=== PATIENT | male | born 1940 | race Caucasian/White ===

== ENCOUNTER 2017-10-07 13:16 | Inpatient (IN) | payer OTHER ==
[2017-10-07] MEDS ORDERED: Ringers Lactate 1,000 ML IV ONE (15:06)
--- NOTE | 2017-10-07 15:34 | RAD REPORT ---
EXAM DESCRIPTION: RAD - Chest Single View - 10/07/2017 2:56 pm CLINICAL HISTORY: Weakness, shortness of breath COMPARISON: August 14, 2017; Two view chest April 2012 TECHNIQUE: AP portable chest image was obtained 1445 hours . FINDINGS: Interstitial pattern is similar to less prominent than on prior imaging. Lung base pleural scarring changes are present and stable. The severity of disease could mask early infiltrative carvajal es. Failure is not suspected. Heart and vasculature are normal. No measurable pleural effusion and no pneumothorax. No gross bony abnormality seen. No acute aortic findings suspected. IMPRESSION: Patient has extensive interstitial fibrotic change and pleural scarring. Pattern is roshan lar to slightly less pronounced than seen in August. The severity of disease could mask early interstitial edema or infiltrate. Failure is not suspected.
[2017-10-07 15:40] LABS: Bicarbonate 27 mEq/L (21-31); Glucose Level 128 mg/dL (65-120); Lipase 21 U/L (22-51); Potassium 3.9 mEq/L (3.6-5.0); Sodium Level 139 mEq/L (135-145)
[2017-10-07 15:42] LABS: Protime INR 1.02
[2017-10-07 15:46] LABS: ALT/SGPT 10 IU/L (10-60); AST/SGOT 22 IU/L (10-42); Albumin 3.3 g/dL (3.2-5.5); Alkaline Phosphatase 101 IU/L (42-121); BUN Blood Urea Nitrogen 22 mg/dL (6-20); Bilirubin Direct 0.1 mg/dL (0-0.2); Bilirubin Total 0.8 mg/dL (0.3-1.2); Creatine Phosphokinase 45 IU/L (22-269); Glomerular Filtration Rate > 90 mL/min (=/>90); Protein, Total 7.2 g/dL (6.0-8.3)
[2017-10-07] MEDS ORDERED: PIPER/TAZO/NS 3.375gm 3.375 GM/100 ML BAG ONE (15:50)
[2017-10-07] MEDS ORDERED: VANCOMYCIN/NS 1 gm 1 GM/250 ML BAG ONE (16:17)
[2017-10-07 16:18] LABS: Absolute Lymphocytes (CBC) 0.8 K/uL (0.7-4.9); Absolute Monocytes 0.7 K/uL (0.1-1.3); Absolute Neutrophil 6.6 K/uL (1.8-8.0); Basophils % 0.5 % (0-1.3); Eosinophils % 0.5 % (0-4.4); Hematocrit 36.5 % (39.6-49.0); Lymphocytes % 9.9 % (15.3-44.8); MCH 39.7 pg (27.0-35.0); MCV 101.6 fL (80-100); MPV 8.5 fL (7.6-11.3); Monocytes % 8.2 % (3.3-12.3); RBC Red Blood Cell Count 3.59 M/uL (4.33-5.43)
--- NOTE | 2017-10-07 17:38 | ER ---
Nurse's Notes [facility] Name: Diego Grimes Age: 77 yrs Sex: Male : 1940 Arrival Date: 10/07/2017 Time: 13:31 Bed 23 Private MD: Diagnosis: Dehydration;Pressure ulcer of right hip, stage 4;Cutaneous abscess of right lower limb;Urinary tract infection, site not specified;Sepsis, unspecified organism Presentation: 10/07 13:31 Presenting complaint: EMS states: Caregiver called 911 because patient has not been aj eating or drinking well for the past 2 days. Patient is awake and alert. Transition of care: patient was not received from another setting of care. Onset of symptoms was October 05, 2017. Care prior to arrival: Medication(s) given: Normal saline infusion, 400 ml IV initiated. 18 GA, in the left antecubital area. 13:31 Method Of Arrival: EMS: [facility] 13:31 Acuity: ANDRA 3 aj Triage Assessment: 13:33 General: Appears in no apparent distress. comfortable, Behavior is calm, cooperative, aj appropriate for age. Pain: Denies pain. Neuro: Level of Consciousness is awake, alert, obeys commands, Oriented to person, place, situation. Respiratory: Airway is patent Respiratory effort is even, unlabored, Respiratory pattern is regular, symmetrical. GI: Parent/caregiver reports the patient having anorexia. Derm: Skin is intact, is healthy with good turgor, Skin is pink, warm \T\ dry. normal. Historical: - Allergies: 13:33 No Known Allergies; aj - Home Meds: 13:33 aspirin 81 mg Oral TbEC 1 tab once daily [Active]; aj - PMHx: 13:33 DVT; aj - PSHx: 13:33 None; aj - Immunization history:: Adult Immunizations unknown. - Social history:: Smoking status: Patient/guardian denies using tobacco. Screenin:15 Abuse screen: Denies threats or abuse. Denies injuries from another. Nutritional kr2 screening: family/caretakers report he does has not been eating or drinking very much. Tuberculosis screening: No symptoms or risk factors identified. Fall Risk IV access (20 points). Ambulatory Aid- None/Bed Rest/Nurse Assist (0 pts). Assessment: 14:15 General: Appears in no apparent distress. comfortable, slender, unkempt, Behavior is kr2 calm, cooperative, appropriate for age. General: Appears patient arrived with dried feces under fingernails and on bottom of foot, family member arrived and assisted in cleaning patient. Pain: Denies pain. Neuro: Level of Consciousness is awake, alert, obeys commands, Oriented to person, place, time, situation. Cardiovascular: Capillary refill < 3 seconds in bilateral fingers Patient's skin is warm and dry. Respiratory: Airway is patent Respiratory effort is even, unlabored, Respiratory pattern is regular, symmetrical. GI: Abdomen is flat, non-distended. : No signs and/or symptoms were reported regarding the genitourinary system. EENT: Oral mucosa is dry. Derm: Skin is thin, with poor turgor Wound noted right hip and right great toe Wound is covered with dressings, small round to right hip, measures 0.5x0.5x0.5cm, saturated with yellow- green drainage. Family member states dressing was changed yesterday. Wound to right great toe is open to air, yellow wound bed, no drainage at this time. Musculoskeletal: Circulation, motion, and sensation intact. 15:00 Reassessment: Patient appears in no apparent distress at this time. Patient and/or kr2 family updated on plan of care and expected duration. Pain level reassessed. Patient is alert, oriented x 3, equal unlabored respirations, skin warm/dry/pink. Patient denies pain at this time. 16:14 Reassessment: Patient appears in no apparent distress at this time. Patient and/or kr2 family updated on plan of care and expected duration. Pain level reassessed. Patient is alert, oriented x 3, equal unlabored respirations, skin warm/dry/pink. Patient denies pain at this time. 17:15 Reassessment: No changes from previously documented assessment. kr2 18:35 Reassessment: Patient appears in no apparent distress at this time. Patient and/or kr2 family updated on plan of care and expected duration. Pain level reassessed. Patient is alert, oriented x 3, equal unlabored respirations, skin warm/dry/pink. Patient denies pain at this time. Vital Signs: 13:33 BP 103 / 86; Pulse 107; Resp 21; Temp 97.4; Pulse Ox 96% on R/A; Weight 58.97 kg; aj Height 6 ft. 1 in. (185.42 cm); Pain 0/10; 16:14 BP 125 / 90; Pulse 106; Resp 18; Pulse Ox 96% on R/A; kr2 18:35 BP 109 / 82; Pulse 98; Resp 18; Pulse Ox 97% on R/A; kr2 13:33 Body Mass Index 17.15 (58.97 kg, 185.42 cm) ED Course: 13:31 Patient arrived in ED. aj 13:33 Triage completed. aj 13:33 Arm band placed on right wrist. Patient placed in an exam room, on a stretcher. aj 13:48 EKG done, by quick service technician. reviewed by Joseph Jimenez MD. tc 13:59 Joseph Jimenez MD is Attending Physician. gs 14:00 Diann Nielson RN is Primary Nurse. kr2 14:00 Patient has correct armband on for positive identification. Bed in low position. Call kr2 light in reach. Side rails up X2. Adult w/ patient. cafeteria monitor on. Pulse ox on. NIBP on. Door closed. Pillow given. Head of bed elevated. 14:50 X-ray completed. Portable x-ray completed in exam room. Patient tolerated procedure mh1 well. 14:51 Chest Single View XRAY In Process Unspecified. EDMS 15:20 Maintain EMS IV. Dressing intact. Site clean \T\ dry. Flushed left antecubital with 2 ml kr2 normal saline. 15:27 Wound culture swab sent to lab. kr2 16:00 Inserted saline lock: 22 gauge in right forearm, using aseptic technique. ,using kr2 aseptic technique. performed by Deborah Lujan RN. 17:36 Andreas Henry MD is Hospitalizing Provider. gs 17:51 Urine Dipstick--Ancillary (enter results) Sent. ag 18:36 No provider procedures requiring assistance completed. Patient admitted, IV remains in kr2 place. Administered Medications: 15:21 Drug: Lactated Ringers Solution 1000 ml Route: IV; Rate: 1000 bolus; Site: left kr2 antecubital; 17:10 Follow up: Response: No adverse reaction; IV Status: Completed infusion kr2 15:43 Drug: Zosyn 3.375 grams Route: IVPB; Infused Over: 60 mins; Site: left antecubital; kr2 17:10 Follow up: Response: No adverse reaction; IV Status: Completed infusion kr2 16:05 Drug: vancoMYCIN 1 grams Route: IVPB; Infused Over: 2 hrs; Site: right forearm; kr2 18:26 Follow up: Response: No adverse reaction; IV Status: Completed infusion kr2 Point of Care Testing: Blood Glucose: 15:28 Blood Glucose: 111 mg/dL; kr2 Ranges: Outcome: 17:37 Decision to Hospitalize by Provider. 18:44 Admitted to Med/surg accompanied by tech, via stretcher, room 424, with chart, Report kr2 called to Gardner 18:44 Condition: good 18:44 Instructed on the need for admit, Demonstrated understanding of instructions, follow-up care. 18:45 Patient left the ED. kr2 Signatures: Dispatcher [employer] EDCorinne Pina, RN RN Demi Mccullough 1 Alexa Wynn, boat engine mechanic EKG Malu Paez Gregory, MD MD gs Reaves, Karey, RN RN kr2
--- NOTE | 2017-10-07 17:38 | EDPHYS ---
Physician Documentation [facility] Name: Diego Grimes Age: 77 yrs Sex: Male : 1940 Arrival Date: 10/07/2017 Time: 13:31 Bed 23 Private MD: ED Physician Joseph Jimenez HPI: 10/07 17:31 This 77 yrs old Male presents to ER via EMS with complaints of Dehydration. gs 17:31 The patient presents to the emergency department with weakness of the entire body, gs generalized weakness. Onset: The symptoms/episode began/occurred 2 day(s) ago. Associated signs and symptoms: Pertinent negatives: nausea. Severity of symptoms: At their worst the symptoms were moderate in the emergency department the symptoms are unchanged. Current symptoms: weak. It is unknown whether or not the patient has had similar symptoms in the past. Historical: - Allergies: 13:33 No Known Allergies; aj - Home Meds: 13:33 aspirin 81 mg Oral TbEC 1 tab once daily [Active]; aj - PMHx: 13:33 DVT; aj - PSHx: 13:33 None; aj - Immunization history:: Adult Immunizations unknown. - Social history:: Smoking status: Patient/guardian denies using tobacco. ROS: 17:31 Constitutional: Positive for fever. gs 17:31 Neuro: Positive for weakness. 17:31 All other systems are negative. Exam: 17:31 Head/Face: Normocephalic, atraumatic. Eyes: Pupils equal round and reactive to light, gs extra-ocular motions intact. Lids and lashes normal. Conjunctiva and sclera are non-icteric and not injected. Cornea within normal limits. Periorbital areas with no swelling, redness, or edema. ENT: Nares patent. No nasal discharge, no septal abnormalities noted. Tympanic membranes are normal and external auditory canals are clear. Oropharynx with no redness, swelling, or masses, exudates, or evidence of obstruction, uvula midline. Mucous membranes moist. Neck: Trachea midline, no thyromegaly or masses palpated, and no cervical lymphadenopathy. Supple, full range of motion without nuchal rigidity, or vertebral point tenderness. No Meningismus. Chest/axilla: Normal chest wall appearance and motion. Nontender with no deformity. No lesions are appreciated. 17:31 Respiratory: Lungs have equal breath sounds bilaterally, clear to auscultation and percussion. No rales, rhonchi or wheezes noted. No increased work of breathing, no retractions or nasal flaring. Abdomen/GI: Soft, non-tender, with normal bowel sounds. No distension or tympany. No guarding or rebound. No evidence of tenderness throughout. Back: No spinal tenderness. No costovertebral tenderness. Full range of motion. 17:31 Constitutional: The patient appears alert, awake, frail, uncomfortable. 17:31 Cardiovascular: Rate: tachycardic, Rhythm: regular, Pulses: no pulse deficits are appreciated. 17:31 ECG was reviewed by the Attending Physician. 17:33 Musculoskeletal/extremity: Circulation is intact in all extremities. large full gs thickness ulcer r hip area, with purulent drainage also on left foot is small ulcer with dry gangrene. 17:33 Neuro: Cranial nerves: CN II- XII are normal as tested, Motor: moves all fours, Sensation: no obvious gross deficits. Vital Signs: 13:33 BP 103 / 86; Pulse 107; Resp 21; Temp 97.4; Pulse Ox 96% on R/A; Weight 58.97 kg; aj Height 6 ft. 1 in. (185.42 cm); Pain 0/10; 16:14 BP 125 / 90; Pulse 106; Resp 18; Pulse Ox 96% on R/A; kr2 18:35 BP 109 / 82; Pulse 98; Resp 18; Pulse Ox 97% on R/A; kr2 13:33 Body Mass Index 17.15 (58.97 kg, 185.42 cm) aj MDM: 14:27 Patient medically screened. 17:33 Data reviewed: vital signs, nurses notes. Data interpreted: transit worker:. Response gs to treatment: the patient's symptoms have mildly improved after treatment, and as a result, I will admit patient. ED course: ddx sepsis, dehydration, septic shock, abscess. 10/07 14:41 Order name: Basic Metabolic Panel; Complete Time: 16:34 10/07 14:41 Order name: Blood Culture Adult (2) 10/07 14:41 Order name: CBC with Diff; Complete Time: 16:34 10/07 14:41 Order name: CPK; Complete Time: 16:34 10/07 14:41 Order name: Lactate; Complete Time: 16:34 10/07 14:41 Order name: LFT's; Complete Time: 16:34 10/07 14:41 Order name: Lipase; Complete Time: 16:34 10/07 14:41 Order name: Procalcitonin; Complete Time: 16:46 10/07 14:41 Order name: Protime (+inr); Complete Time: 16:34 10/07 14:41 Order name: Troponin (emerg Dept Use Only); Complete Time: 16:34 10/07 15:23 Order name: Wound Culture kr2 10/07 15:23 Order name: Wound Culture kr2 10/07 17:47 Order name: Urine Dipstick--Ancillary (enter results) bd 10/07 17:49 Order name: Urine Microscopic Only ag 10/07 14:41 Order name: Chest Single View XRAY; Complete Time: 15:38 10/07 14:41 Order name: Accucheck; Complete Time: 15:27 10/07 14:41 Order name: Cardiac monitoring; Complete Time: 15:04 10/07 14:41 Order name: EKG - Nurse/Tech; Complete Time: 15:03 10/07 14:41 Order name: IV Saline Lock - Large Bore; Complete Time: 15:03 10/07 14:41 Order name: Labs collected and sent; Complete Time: 15:03 10/07 14:41 Order name: O2 Per Protocol; Complete Time: 15:04 10/07 14:41 Order name: O2 Sat Monitoring; Complete Time: 15:04 10/07 14:41 Order name: Urine Dipstick-Ancillary (obtain specimen); Complete Time: 18:45 10/07 17:49 Order name: Urine Culture ag 10/07 17:54 Order name: Urine Dipstick-Ancillary EDMS 10/07 18:21 Order name: Urine Microscopic Only EDMS EC:31 Rate is 108 beats/min. Rhythm is regular. NC interval is normal. QRS interval is gs normal. QT interval is normal. T waves are Normal. No ST changes noted. Clinical impression: Sinus tachycardia. Interpreted by me. Administered Medications: 15:21 Drug: Lactated Ringers Solution 1000 ml Route: IV; Rate: 1000 bolus; Site: left kr2 antecubital; 17:10 Follow up: Response: No adverse reaction; IV Status: Completed infusion kr2 15:43 Drug: Zosyn 3.375 grams Route: IVPB; Infused Over: 60 mins; Site: left antecubital; kr2 17:10 Follow up: Response: No adverse reaction; IV Status: Completed infusion kr2 16:05 Drug: vancoMYCIN 1 grams Route: IVPB; Infused Over: 2 hrs; Site: right forearm; kr2 18:26 Follow up: Response: No adverse reaction; IV Status: Completed infusion kr2 Point of Care Testing: Blood Glucose: 15:28 Blood Glucose: 111 mg/dL; kr2 Ranges: Critical Glucose Levels:Adult <50 mg/dl or >400 mg/dl <40 mg/dl or >180 mg/dl Disposition: 10/07/17 17:37 Hospitalization ordered by Andreas Henry for Inpatient Admission. Preliminary diagnosis are Dehydration, Pressure ulcer of right hip, stage 4, Cutaneous abscess of right lower limb, Urinary tract infection, site not specified, Sepsis, unspecified organism. - Bed requested for Telemetry/MedSurg (Inpatient). - Status is Inpatient Admission. kr2 - Condition is Stable. - Problem is an acute exacerbation. - Symptoms have worsened. UTI on Admission? Yes Critical care time excluding procedures: 17:33 Critical care time: Bedside Care: 10 minutes, Consultation: 10 minutes, Family Intervention: 10 minutes. Total time: 30 minutes Signatures: Dispatcher [employer] Terri Hugo RN RN dw Myers, Amanda, RN RN aj Starr, Gregory, MD MD gs Reaves, Karey, RN RN kr2
[2017-10-07 17:54] LABS: Urine Blood TRACE (NEG); Urine Glucose NEGATIVE (NEG); Urine Protein 1+ (NEG); Urine pH 5.5 (5.0-7.0)
[2017-10-07 18:20] LABS: Urine Bacteria >50 /HPF (NONE SEEN)
[2017-10-07 18:21] LABS: Urine Culture Reflex Order NOT NEEDED
[2017-10-07] MEDS ORDERED: VANCOMYCIN/NS 1 gm 1 GM/250 ML BAG IVPB SCH (18:36)
[2017-10-07] MEDS ORDERED: MORPHINE 4 MG/ML SYR IV PRN (19:49)
[2017-10-07] MEDS ORDERED: ACETAMINOPHEN 500 MG TAB PO PRN (19:49)
[2017-10-07] MEDS ORDERED: ONDANSETRON 4 MG/2 ML VIAL IV PRN (19:49)
[2017-10-07] MEDS: NA CHLORIDE 0.9% 1,000 ML IV SCH (20:28)
[2017-10-08] MEDS: NA CHLORIDE 0.9% 1,000 ML IV SCH ×2 (04:36→14:11)
[2017-10-08 04:52] LABS: Absolute Lymphocytes (CBC) 0.7 K/uL (0.7-4.9); Absolute Monocytes 0.6 K/uL (0.1-1.3); Absolute Neutrophil 4.5 K/uL (1.8-8.0); Basophils % 0.4 % (0-1.3); Eosinophils % 2.5 % (0-4.4); Hematocrit 33.9 % (39.6-49.0); Lymphocytes % 12.3 % (15.3-44.8); MCH 35.7 pg (27.0-35.0); MCV 100.3 fL (80-100); MPV 7.5 fL (7.6-11.3); Monocytes % 10.3 % (3.3-12.3); RBC Red Blood Cell Count 3.38 M/uL (4.33-5.43)
[2017-10-08 04:59] LABS: Protime INR 1.03
[2017-10-08 05:27] LABS: ALT/SGPT 9 IU/L (10-60); AST/SGOT 16 IU/L (10-42); Albumin 2.4 g/dL (3.2-5.5); Alkaline Phosphatase 83 IU/L (42-121); BUN Blood Urea Nitrogen 16 mg/dL (6-20); Bicarbonate 26 mEq/L (21-31); Bilirubin Total 0.9 mg/dL (0.3-1.2); Glomerular Filtration Rate > 90 mL/min (=/>90); Glucose Level 83 mg/dL (65-120); Potassium 3.6 mEq/L (3.6-5.0); Protein, Total 5.1 g/dL (6.0-8.3); Sodium Level 140 mEq/L (135-145)
--- NOTE | 2017-10-08 08:42 | P.HP ---
Certification for Inpatient Patient admitted to: Inpatient With expected LOS: >2 Midnights Patient will require the following post-hospital care: None Practitioner: I am a practitioner with admitting privileges, knowledge of patient current condition, hospital course, and medical plan of care. Services: Services provided to patient in accordance with Admission requirements found in Title 42 Section 412.3 of the Code of Federal Regulations Patient History Date of Service: 10/07/17 Reason for admission: Dehydration; malnourished History of Present Illness: Patient is a 77-year-old gentleman who is a poor historian. He lives at home with caretakers. For the last few days he has not been eating or drinking well. He is very cachectic and getting weaker. His big 6 dealer call 911 because of his poor nutritional status. He also has a decubitus which is healing on the right hip. Patient was started on IV hydration. His workup in the emergency room revealed acute kidney injury. Patient also had Macrocytic anemia indicative of nutrition deficiency as well. Patient was admitted to the hospital for further evaluation. Allergies No Known Allergies Allergy (Unverified 08/14/17 16:54) Home Medications: Aspirin [Aspirin EC 81 MG] 81 mg PO DAILY 10/08/17 - Past Medical/Surgical History Has patient received pneumonia vaccine in the past: No Diabetic: No -: DVT Past Surgical History: Patient denies surgical history - Family History Mother Notes: patient states he doesnt know Father Notes: patient states he doesnt know - Social History Smoking Status: Never smoker Review of Systems 10-point ROS is otherwise unremarkable Physical Examination - Vital Signs Temperature: 97.1 F Blood Pressure: 102/58 Pulse: 73 Respirations: 18 Pulse Ox (%): 96 - Physical Exam General: Alert, In no apparent distress, Oriented x3, Cachectic, Disheveled HEENT: Atraumatic, PERRLA, Mucous membr. moist/pink, EOMI, Sclerae nonicteric Neck: Supple, 2+ carotid pulse no bruit, No LAD, Without JVD or thyroid abnormality Respiratory: Clear to auscultation bilaterally, Normal air movement Cardiovascular: Regular rate/rhythm, Normal S1 S2, Systolic murmur Gastrointestinal: Normal bowel sounds, Soft and benign, Non-distended, No tenderness Musculoskeletal: No tenderness Integumentary: Skin lesion (Underneath the right hip. Stage I) Neurological: Normal speech, Normal tone, Sensation intact, Cranial nerves 3-12 intact, Normal affect, Abnormal gait, Abnormal strength Lymphatics: No axilla or inguinal lymphadenopathy - Studies Laboratory Data (last 24 hrs) 10/07/17 15:15: PT 12.0, INR 1.02 10/07/17 15:15: WBC 8.1, Hgb 14.2, Hct 36.5 L, Plt Count 388 10/07/17 15:15: Sodium 139, Potassium 3.9, BUN 22 H, Creatinine 0.71, Glucose 128 H, Total Bilirubin 0.8, AST 22, ALT 10, Alkaline Phosphatase 101, Lipase 21 L Assessment & Plan - Problems (Diagnosis) (1) Malnutrition Current Visit: Yes Status: Acute (2) Cachexia Current Visit: Yes Status: Acute (3) Prerenal azotemia Current Visit: Yes Status: Acute (4) Macrocytic anemia Current Visit: Yes Status: Acute (5) Puncture wound of hip Current Visit: Yes Status: Acute - Plan Plan: 1. IV hydration 2. Monitor renal function 3. Case management consultation 4. Continue local wound care 5. Check B12 and folic acid level 6. Physical therapy evaluation 7. GI and DVT prophylaxis Discharge Plan: Home Plan to discharge in: Greater than 2 days - Advance Directives Does patient have a Living Will: No Does patient have a Durable POA for Healthcare: Yes - Code Status/Comfort Care Code Status Assessed: Yes Code Status: Full Code Critical Care: No Time Spent Managing PTS Care (In Minutes): 50
[2017-10-08] MEDS: VANCOMYCIN/NS 1 gm 1 GM/250 ML BAG IV SCH (09:34)
[2017-10-08] MEDS: PIPER/TAZO/NS 3.375gm 3.375 GM/100 ML BAG IV SCH ×2 (11:18→19:00)
[2017-10-08 13:24] LABS: Thyroid Stimulating Hormone 1.75 uIU/mL (0.34-5.60)
[2017-10-08] MEDS: THIAMINE HCL 100 MG TABLET PO SCH ×2 (14:10→21:22)
--- NOTE | 2017-10-08 14:19 | RAD REPORT ---
EXAM DESCRIPTION: RAD - Foot Right 2 View - 10/08/2017 1:49 pm CLINICAL HISTORY: Diabetic foot. COMPARISON: None. FINDINGS: Diffuse osteopenia noted. Lucent moderate-sized chondroid bone lesion is present emanating from dorsal lateral margin of the proximal phalanx of the great toe. This may represent an enchondro ma, low grade chondrosarcoma or less likely chondromyxoid fibroma. Small calcaneal spur noted. Vascul ar calcifications noted.
--- NOTE | 2017-10-08 16:13 | RAD REPORT ---
EXAM DESCRIPTION: CT - Head Brain W/Wo Con - 10/08/2017 4:00 pm CLINICAL HISTORY: Headache COMPARISON: 07/27/2010 TECHNIQUE: All CT scans are performed using dose optimization technique as appropriate and may inclu de automated exposure control or mA/KV adjustment according to patient size. FINDINGS: No intracranial hemorrhage, hydrocephalus or extra-axial fluid collection.Moderate general ized brain atrophy is present with moderate periventricular and deep white matter chronic microvascul ar ischemic changes.No areas of brain edema or evidence of midline shift. The paranasal sinuses and mastoids are clear. The calvarium is intact. Post-contrast portion of the examination demonstrates no abnormal areas of enhancement. IMPRESSION: No acute intracranial abnormality. No abnormal postcontrast enhancement identified.
--- NOTE | 2017-10-08 16:19 | RAD REPORT ---
EXAM DESCRIPTION: CT - Chest Abdomen Pelvis W Cont - 10/08/2017 4:00 pm CLINICAL HISTORY: Chest and abdomen pain. Weight loss COMPARISON: None. TECHNIQUE All CT scans are performed using dose optimization technique as appropriate and may includ e automated exposure control or mA/KV adjustment according to patient size. FINDINGS: Linear opacities are present in both lung bases, most compatible with a areas of atelectas is. The lungs are mildly emphysematous.Trace bilateral pleural fluid.Calcified left-sided pleural maite ques seen.No intrathoracic adenopathy. Small hiatal hernia is present. The liver demonstrates no focal lesion or biliary dilatation. Mild gallbladder distention. The spleen , pancreas, adrenal glands and kidneys are within normal limits. Aortic atherosclerosis is seen. Ecta tic changes of the right common iliac artery is present. No bowel obstruction, free air, free fluid or abscess. No pathologic lymphadenopathy in the abdomen o r pelvis. Moderate fecal retention in the rectum. Hardware is present in the right proximal femur. IMPRESSION: COPD with evidence of previous asbestos exposure. Significant aortic atherosclerosis. Moderate fecal retention in the rectum.
--- NOTE | 2017-10-08 18:09 | CON ---
History Of Present Illness: The patient is a 77-year-old male coming in with dehydration because was not able to eat or drink. I was consulted for right hip ulcer, status post nonhealing surgical ulce r, and right foot ulceration. The patient is not a good historian. Most of the history was obtained through medical record. Past Medical History: Right hip surgery status post fall, right big toe injury secondary to horse st epping on his foot 50+ years ago. Medications: Zosyn and vancomycin. See MARs for other medication. Allergies: NO KNOWN DRUG ALLERGIES. Review of Systems: A 10-point review was performed. Physical Examination: General: This is a 77-year-old male, lying in bed, not in any acute cardiopulmonary distress. Vital Signs: Temperature 97, pulse 87, respiration 18, blood pressure 128/71. HEENT: Unremarkable. Neck: Supple. Lungs: Basal crackles. Heart: S1, S2 regular. Abdomen: Soft, nontender. Bowel sounds positive. Extremities: Right hip wound noted 0.4 x 0.4, depth was 1 cm. Right big toe erythematous changes no paige on the big toe with the ulceration 1.5 x 1 cm and depth is 0.5. Laboratory Data: Shows WBC 6000, hemoglobin 12.1, platelets are 316. Chemistry shows sodium 140, po tassium 3.6, chloride 106, bicarb 26, 0.59, glucose is 83, albumin is 2.4, procalcitonin is 0.6. Chest x-ray shows extensive interstitial fibrotic changes and pleural scarring. Assessment And Plan: Right hip nonhealing complicated surgical wound, recommend to get an x-ray of t he hip. Right foot nonhealing ulcer, recommend to get an x-ray of the foot also. Apply Santyl to th e right foot ulceration daily, iodoform gauze packing to the right hip wound. We will follow the pat ient closely. Continue vancomycin and Zosyn. Can be switched to oral antibiotic prior to discharge for 2 weeks. We will follow the patient closely. NF/MODL Voice ID: [id number] Report ID: [id number]
--- NOTE | 2017-10-08 18:17 | P.PN ---
Subjective Date of Service: 10/08/17 Chief Complaint: Dehydration; malnourished The patient feels better today after rehydration Physical Examination - Vital Signs Temperature: 97.4 F Blood Pressure: 110/76 Pulse: 99 Respirations: 18 Pulse Ox (%): 94 - Physical Exam General: Alert, In no apparent distress HEENT: Atraumatic, PERRLA, EOMI Neck: Supple, JVD not distended Respiratory: Clear to auscultation bilaterally, Normal air movement Cardiovascular: Regular rate/rhythm, Normal S1 S2 Gastrointestinal: Normal bowel sounds, No tenderness Musculoskeletal: No tenderness Integumentary: No rashes Neurological: Normal speech, Normal tone, Normal affect Lymphatics: No axilla or inguinal lymphadenopathy - Studies Microbiology Data (last 24 hrs): 10/07/17 15:00 Wound - Right Hip Gram Stain - Final 10/07/17 15:00 Wound - Right Toe Gram Stain - Final Medications List Reviewed: Yes Assessment And Plan - Current Problems (Diagnosis) (1) Failure to thrive Current Visit: Yes Status: Acute Qualifiers: Failure to thrive age range: in adult Qualified Code(s): R62.7 - Adult failure to thrive (2) Dehydration Current Visit: Yes Status: Chronic (3) Cachexia Current Visit: Yes Status: Chronic (4) Macrocytic anemia Current Visit: Yes Status: Chronic (5) Malnutrition Current Visit: Yes Status: Chronic Qualifiers: Malnutrition type: protein-calorie malnutrition Protein-calorie malnutrition severity: moderate Qualified Code(s): E44.0 - Moderate protein- calorie malnutrition (6) Puncture wound of hip Current Visit: Yes Status: Chronic Qualifiers: Encounter type: initial encounter Laterality: right Qualified Code(s): S71.031A - Puncture wound without foreign body, right hip, initial encounter - Plan --continue intravenous fluid replacement --chest abdomen pelvis rule out malignant --CT of the head rule out stroke --B12 and tsh --console aids social worker in terms of placement assistance
[2017-10-09] MEDS: NA CHLORIDE 0.9% 1,000 ML IV SCH ×3 (00:36→20:27)
[2017-10-09] MEDS: PIPER/TAZO/NS 3.375gm 3.375 GM/100 ML BAG IV SCH ×3 (01:08→16:48)
[2017-10-09] MEDS: VANCOMYCIN/NS 1 gm 1 GM/250 ML BAG IV SCH ×2 (03:51→22:00)
[2017-10-09] MEDS: THIAMINE HCL 100 MG TABLET PO SCH ×3 (08:52→20:27)
[2017-10-09] MEDS: COLLAGENASE 30 GM OINTMENT TOP SCH ×2 (08:53→08:58)
[2017-10-09] MEDS: ENSURE ENLIVE 237 ML CAN PO SCH ×2 (13:45→20:27)
--- NOTE | 2017-10-09 16:02 | RAD REPORT ---
EXAM DESCRIPTION: RAD - Femur Right - 10/09/2017 3:43 pm CLINICAL HISTORY: Pain, soft tissue wound. COMPARISON: None. FINDINGS: Intramedullary mine is noted in the proximal right femur. There is slight lucency seen surr ounding the superior aspect of the intramedullary mine which could indicate mild movement of the hardw are/loosening. Heavy atherosclerosis is noted. No radiographic evidence of osteomyelitis.
[2017-10-09] MEDS: ENOXAPARIN 40 MG/0.4 ML SQ SCH (16:48)
--- NOTE | 2017-10-09 18:07 | PN ---
Subjective: Currently is lying in bed. He looks comfortable. No chest pain. No abdominal pain. N o fever no chills. Good appetite. Review of Systems: Otherwise negative. Objective: Vital Signs: Currently vital signs, blood pressure is 105/75, respiratory rate 16, pulse 89, temperature 98.2, and saturating 93 on room air. General: He is fully alert, oriented x3. Does not look in any distress. HEENT: Atraumatic, normocephalic. PERRLA. Oral mucosa is moist. Neck: Supple. No JVD. No carotid bruits. Chest: Clear to auscultation. Good air entry. Heart: Regular rate and rhythm. S1, S2 normal. No gallop or murmur. Abdomen: Soft, nontender. No masses. No hepatosplenomegaly. Positive bowel sounds. Extremities: No clubbing, no cyanosis or edema. Right foot with a large ulceration on the big toe 1 x 1.5 cm and depth of 0.5 cm. Right hip wound 0.4 x 0.4 with a depth of 1 cm. There is mild erythe ma on the right big toe. Laboratory Data: Done today showed CBC within normal except for hemoglobin 12.1, normal platelet cou nt. Chemistry within normal except for creatinine 0.59, BUN of 16, and ALT of 9. Foot x-ray showed diffuse osteopenia, lucent moderate sized chondroid bone lesion present which may r epresent enchondroma, low grade chondrosarcoma, or less likely a chondromyxoid fibroma. The hip x-ra ys that were ordered by Dr. Lopez, apparently it was not done. Assessment And Plan: 1.Right hip nonhealing complicated surgical wound and right foot nonhealing ulcer. X-ray of the nickie t noted. Given the questionable nature of the lesion, I will proceed with the orthopedic consult to see if the patient needs amputation on that toe. Hip x-rays not done, so I will proceed with that. Continue the patient empirically with vancomycin. Wound culture from the hip showed Staphylococcus a ureus, which is sensitive to vancomycin and Bactrim, so would have oral option if we need to switch d own the road. 2.Severe cachexia and weight loss. CAT scan of the chest, abdomen, and pelvis done by Dr. Henry was negative for malignancy. 3.Puncture wound of the hip. Culture again positive for Staphylococcus aureus. The patient on Zosy n and vancomycin. I will probably discontinue Zosyn when the culture is final. 4.Malnutrition. Continue Ensure. There is no evidence of malignancy on CAT scan. 5.CAT scan of the head was negative for stroke. 6.Pending patient placement, social Work consult. 7.Deep vein thrombosis prophylaxis. We will start Lovenox at 40 mg once a day. MT/MODL Voice ID: [id number] Report ID: [id number]
[2017-10-10] MEDS: PIPER/TAZO/NS 3.375gm 3.375 GM/100 ML BAG IV SCH ×2 (01:12→09:15)
[2017-10-10] MEDS: NA CHLORIDE 0.9% 1,000 ML IV SCH ×2 (07:09→15:16)
[2017-10-10] MEDS ORDERED: PNEUMOCOCCAL VACCINE 0.5 ML IMVAC ONE (08:00)
[2017-10-10] MEDS: THIAMINE HCL 100 MG TABLET PO SCH ×3 (10:17→20:19)
[2017-10-10] MEDS: COLLAGENASE 30 GM OINTMENT TOP SCH (10:17)
--- NOTE | 2017-10-10 13:02 | EKG ---
Test Date: 2017-10-07 Test Time: 13:42:29 Farm Rancher: MANOLO MEASUREMENT RESULTS: Intervals: Rate: 108 MI: 148 QRSD: 72 QT: 340 QTc: 455 Bonham: P: 73 MI: 148 QRS: 34 T: 59 INTERPRETIVE STATEMENTS: Sinus tachycardia Otherwise normal ECG Compared to ECG 07/27/2010 03:08:57 Sinus rhythm no longer present First degree AV block no longer present Electronically Signed On 10-10-17 13:01:28 CDT by Deuce Arvizu
[2017-10-10] MEDS: ENSURE ENLIVE 237 ML CAN PO SCH ×2 (13:33→20:19)
[2017-10-10] MEDS: VANCOMYCIN/NS 1 gm 1 GM/250 ML BAG IV SCH (16:08)
[2017-10-10] MEDS: ENOXAPARIN 40 MG/0.4 ML SQ SCH (16:21)
[2017-10-10] MEDS: Meropenem 1,000 MG in NA CHLORIDE 0.9% 100 ML IV SCH (17:25)
--- NOTE | 2017-10-10 17:50 | PN ---
Subjective: The patient lying in bed. He looks comfortable. He has no chest pain. No abdominal pa in. Has mild nausea but resolved. No events overnight. Objective: Vital Signs: Blood pressure 121/64, respiratory rate 18, heart rate 79, temperature 98. General: He is fully alert, oriented x3. Does not look in any distress. HEENT: Atraumatic, normocephalic. PERRLA. Mucosa is moist. Neck: Supple. No JVD. No carotid bruits. Chest: Clear to auscultation. Good air entry. Heart: Regular rate, normal S1, S2 normal. No gallop or murmur. Abdomen: Soft, nontender. No masses. No hepatosplenomegaly. Positive bowel sounds. Extremities: Without any clubbing or cyanosis. There is a right foot with large laceration on the b ig toe 1 x 1.5 cm and depth of 0.5 cm. Right hip open wound is small 0.4 x 0.4 cm with a depth of 1 cm. Mild erythema on the right big toe. Laboratory Data: Today showed nothing as labs was not done. X-ray order of the femur yesterday show ed an intramedullary mine is noted in the proximal right femur, slight lucency seen surrounding the [place] perior aspect of the intramedullary mine which could indicate mild movement of the hardware loosening. Heavy is noted. There was no osteomyelitis. Assessment And Plan: 1.Right hip nonhealing complicated surgical wound and right foot nonhealing ulcer. At this point, O rthopedic consult is still pending to see if the patient need any surgical intervention. In the mean time, wound culture from the femur growing Staph was sensitive to vancomycin. He will continue that while the wound culture from the toe growing Pseudomonas so will switch his antibiotic to meropenem t o cover Pseudomonas and continue vancomycin following that. 2.Severe cachexia with weight loss. CAT scan of the chest abdomen and pelvis done by Dr. Henry was negative for malignancy. 3.Malnutrition. Continue Ensure. Nutrition consult. 4.Placement needed, Social consult requested Mondays, they will need to work on that. 5.Deep venous thrombosis prophylaxis with Lovenox. TERA/COURTNEYL Voice ID: [id number] Report ID: [id number]
[2017-10-11] MEDS: Meropenem 1,000 MG in NA CHLORIDE 0.9% 100 ML IV SCH ×2 (01:59→09:52)
[2017-10-11] MEDS: NA CHLORIDE 0.9% 1,000 ML IV SCH ×2 (01:59→10:00)
[2017-10-11] MEDS ORDERED: VANCOMYCIN/NS 1 gm 1 GM/250 ML BAG IV SCH (04:00)
[2017-10-11 05:40] LABS: Absolute Lymphocytes (CBC) 0.9 K/uL (0.7-4.9); Absolute Monocytes 0.6 K/uL (0.1-1.3); Absolute Neutrophil 3.9 K/uL (1.8-8.0); Basophils % 0.5 % (0-1.3); Eosinophils % 4.7 % (0-4.4); Hematocrit 32.1 % (39.6-49.0); Lymphocytes % 15.6 % (15.3-44.8); MCH 34.9 pg (27.0-35.0); MCV 100.1 fL (80-100); MPV 6.9 fL (7.6-11.3); Monocytes % 10.2 % (3.3-12.3)
[2017-10-11 05:55] LABS: ALT/SGPT 9 IU/L (10-60); AST/SGOT 19 IU/L (10-42); Albumin 2.4 g/dL (3.2-5.5); Alkaline Phosphatase 71 IU/L (42-121); BUN Blood Urea Nitrogen 6 mg/dL (6-20); Bicarbonate 27 mEq/L (21-31); Bilirubin Total 0.7 mg/dL (0.3-1.2); Glomerular Filtration Rate > 90 mL/min (=/>90); Glucose Level 90 mg/dL (65-120); Potassium 3.2 mEq/L (3.6-5.0); Protein, Total 5.1 g/dL (6.0-8.3); Sodium Level 139 mEq/L (135-145)
[2017-10-11] MEDS: THIAMINE HCL 100 MG TABLET PO SCH (09:52)
[2017-10-11] MEDS: ENSURE ENLIVE 237 ML CAN PO SCH ×2 (09:52→20:35)
[2017-10-11] MEDS: COLLAGENASE 30 GM OINTMENT TOP SCH (09:58)
[2017-10-11] MEDS ORDERED: HYDROCODONE/APAP 7.5/325 MG TAB PO PRN (09:59)
[2017-10-11] MEDS ORDERED: TRAMADOL HCL 50 MG TAB PO PRN (09:59)
--- NOTE | 2017-10-11 10:08 | P.PN ---
Subjective Date of Service: 10/11/17 Primary Care Provider: None Chief Complaint: Dehydration; malnourished Subjective: Doing well Physical Examination - Vital Signs Temperature: 97.7 F Blood Pressure: 132/70 Pulse: 71 Respirations: 18 Pulse Ox (%): 93 - Physical Exam General: Alert, In no apparent distress, Cooperative HEENT: Atraumatic Neck: Supple Respiratory: Clear to auscultation bilaterally, Normal air movement Cardiovascular: Normal pulses, Regular rate/rhythm Gastrointestinal: Normal bowel sounds, Soft and benign, Non-distended Musculoskeletal: No tenderness, No warmth Integumentary: Other (There is a small ulcer to the right great toe. There is a bony lesion to the right great toe. Small ulcer to the right hip lateral region. ) - Studies Microbiology Data (last 24 hrs): 10/07/17 15:00 Wound - Right Toe Gram Stain - Final 10/07/17 15:00 Wound - Right Toe Culture & Sensitivity - Final Pseudomonas Aeruginosa Staph Aureus Medications List Reviewed: Yes Assessment & Plan - Problems (Diagnosis) (1) Foot ulcer Current Visit: Yes Status: Acute Plan: Foot ulcer noted to the right great toe. Wound culture positive for Staph aureus and Pseudomonas. Will transition to oral medication. Patient will need oral antibiotics for 2 weeks. Will discuss further with infectious disease. Patient will need to continue with wound care. Will need to discuss with orthopedics concerning the tumor to the toe. Will continue with physical therapy. Patient awaiting to be sent to skilled facility. 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 The patient suffered an injury many years ago. A tumor appears to have formed. Will discuss with orthopedics for plan of care. (3) Malnutrition Onset Date: 10/11/17 Current Visit: Yes Status: Chronic Plan: Will continue with dietary recommendation. Qualifiers: Malnutrition type: protein-calorie malnutrition Protein-calorie malnutrition severity: moderate Qualified Code(s): E44.0 - Moderate protein- calorie malnutrition (4) Puncture wound of hip Onset Date: 10/11/17 Current Visit: Yes Status: Chronic Plan: Small ulcer to the right hip. No osteomyelitis noted to the x-ray. Will monitor this closely. Will discuss further with orthopedics. Wound culture positive for Staph aureus. Will transition to oral antibiotic therapy for 2 weeks. Qualifiers: Encounter type: initial encounter Laterality: right Qualified Code(s): S71.031A - Puncture wound without foreign body, right hip, initial encounter (5) Hypokalemia Current Visit: Yes Status: Acute Plan: Will continue to monitor and replace appropriately. Replacement protocol in place. (6) Anemia Current Visit: Yes Status: Acute Plan: Will continue to monitor closely. Qualifiers: Anemia type: other cause Other causes of anemia: chronic disease, other Qualified Code(s): D63.8 - Anemia in other chronic diseases classified elsewhere Discharge Plan: Other (Skilled facility placement) Plan to discharge in: 24 Hours Time Spent Managing Pts Care (In Minutes): 55
[2017-10-11] MEDS: ENOXAPARIN 40 MG/0.4 ML SQ SCH (17:51)
--- NOTE | 2017-10-11 18:48 | PN ---
Subjective: The patient lying in bed. Denies any headache, nausea, vomiting, chest pain, abdominal pain, constipation, or diarrhea. Objective: Vital Signs: Temperature 98, pulse 71, respirations 18, and blood pressure 126/69. Lungs: Basal crackles. Heart: S1, S2. Regular. Abdomen: Soft, nontender. Bowel sounds positive. Extremities: No edema. Right hip wound decreased drainage and right foot ulcer on the big toe area also decreased, ulceration continue. Laboratory Data: WBC 5.6, hemoglobin 11.2, and platelets are 311. Chemistry shows sodium 139, potas sium 3.2, chloride 107, bicarb 27, BUN 6, creatinine 0.5, and glucose is 90. Micro data shows right great toe with Pseudomonas aeruginosa and staph aureus positive. Right hip wound has staph aureus al so, not MRSA. Can be switched to oral Augmentin and Levaquin. We will follow the patient closely. The [facility]. Otherwise, follow up with the primary care. LOLIS/YING Voice ID: [id number] Report ID: [id number]
[2017-10-11] MEDS: MUPIROCIN 2% OINT 22GM TUBE TOP SCH (20:33)
[2017-10-11] MEDS: AMOX/K CLAV 500 MG TAB PO SCH (20:34)
--- NOTE | 2017-10-12 05:40 | CON ---
Date of Consultation: 10/11/2017 This is my first time seeing this patient to my knowledge. He is a 77-year-old male, who was apparen tly admitted for dehydration and generalized disability. He has x-rays, which demonstrate a healed i ntertrochanteric fracture on the right with 1 cephalomedullary screw as well as a mine. The other cep halomedullary screw is not present. Also has a distal screw. Also has x-rays of the foot, which dem onstrate a mass along the medial aspect of his proximal phalanx of his great toe. This mass has unus ual characteristics and could be consistent with a neoplastic process. On history, the patient says that he did have a fracture of his hip at approximately 5 years ago and that he never had any additio nal surgery to his hip and that he did have a screw which did back out which he self removed that he does not have any surgery for. He says since that time he has had a draining area in this region of his hip and he has been treating it himself for approximately 5 years with salves and creams. Says s ometimes it is worse than others, but is not painful and does not cause him any pain with ambulation. With regard to his toe, his toe does have a large mass along the medial aspect. This mass appears to abut the second toe. There is some loss of skin or ulceration on the most superficial medial aspe ct of this. He does have some mild pain with palpation of this area. On further questioning, he say s that he had this mass since he was 17 years old after being stepped on by a horse. He says that th is is not changed in any way in character or presentation throughout 50 or so years. He says now it is beginning to bother him, but he says that this is the same size and he has had no changes. Assessment: This is a 77-year-old male now with a healed intertrochanteric femur fracture on the rig ht with retained hardware. He does have a draining sinus, which is most likely reflective of osteomy elitis. Plan for this would be either conservative, which would be treatment with oral antibiotics. Watch for any signs of worsening with regard to constitutional symptoms, but otherwise treat this wi th suppression or irrigation and debridement of this area with removal of hardware, possible reaming of the femur as well as any screw track. With regard to his toe, he does have characteristics which appear to be consistent with neoplasm to me whether or not this was a transformative lesion or whethe r this is a primary neoplasm is uncertain. The recommendation for him is to proceed to the Cancer Ce [facility]ter for probable biopsy and any other procedures, which they may deem necessary. I think that biops y at this institution is not recommended as this is undoubtedly if it is neoplastic, would be a rare manifestation and treatment methods may include need for higher level of care and that biopsying this lesion would either be nondiagnostic or would then possibly show that he needs referral to a [facility] care center either which would probably be best handled initially at the tertiary care center. The re is no sign of active infection. After these options were discussed in detail with the patient, th e patient says he would not like to have anything done surgically and that he is planning on moving [facility] to [place] and that when he goes to [place], he will have everything addressed there. I disc ussed with him the chronic osteomyelitis and differing treatments and what this could mean for him. He says he understands that, but again was he would like to go to [place] for his medical care [facility] rding this. With regard to his toe, he has the exact same response to inquiry, stating that he would like to have this taken care of in [place] as well. I asked him when he is going to go to [facility], he says that his [facility] is actively [facility] [place] and he plans on leaving to go to [place] as soon as possible. I asked when he thought that would be, he said he was unsure. Plan: At this time, probably treat the toe with local wound care. Dr. Boss and Dr. Mora in [facility] rd to addressing the infectious changes of osteomyelitis and probably treat this conservatively. I t hink it also would be vail to at least have a second pair of eyes with regard to his toe and would ad vise consultation with our oncologist on staff and at least they could speak with him about his possi ble options and be able to confirm his wishes or perhaps move forward with different recommendations. SADIA Voice ID: [id number] Report ID: [id number]
[2017-10-12] MEDS: MUPIROCIN 2% OINT 22GM TUBE TOP SCH (08:58)
[2017-10-12] MEDS: AMOX/K CLAV 500 MG TAB PO SCH (08:58)
[2017-10-12] MEDS: COLLAGENASE 30 GM OINTMENT TOP SCH (08:59)
[2017-10-12] MEDS: ENSURE ENLIVE 237 ML CAN PO SCH (09:00)
[2017-10-12] MEDS ORDERED: THIAMINE HCL 100 MG TABLET PO SCH (09:00)
[2017-10-12] MEDS ORDERED: levoFLOXacin 500 MG TAB PO SCH (09:00)
[2017-10-12] MEDS: ENOXAPARIN 40 MG/0.4 ML SQ SCH (16:07)
--- NOTE | 2017-10-12 16:58 | P.DS ---
Admission Date: 10/07/17 Discharge Date: 10/12/17 Primary Care Provider: None Disposition: TRANSFER TO ASSISTED Discharge Condition: GOOD Reason for Admission: Dehydration; malnourished Consultations: Orthopedics-Dr. Lopez Infectious disease-Dr. Mora - Problems (1) Foot ulcer Current Visit: Yes Status: Acute Qualifiers: Laterality: right Non-pressure ulcer stage: unspecified non-pressure ulcer stage Qualified Code(s): L97.519 - Non-pressure chronic ulcer of other part of right foot with unspecified severity (2) Bone tumor Current Visit: Yes Status: Chronic (3) Malnutrition Onset Date: 10/11/17 Current Visit: Yes Status: Chronic Qualifiers: Malnutrition type: protein-calorie malnutrition Protein-calorie malnutrition severity: moderate Qualified Code(s): E44.0 - Moderate protein- calorie malnutrition (4) Puncture wound of hip Onset Date: 10/11/17 Current Visit: Yes Status: Chronic Qualifiers: Encounter type: initial encounter Laterality: right Qualified Code(s): S71.031A - Puncture wound without foreign body, right hip, initial encounter (5) Hypokalemia Current Visit: Yes Status: Acute (6) Anemia Current Visit: Yes Status: Acute Qualifiers: Anemia type: other cause Other causes of anemia: chronic disease, other Qualified Code(s): D63.8 - Anemia in other chronic diseases classified elsewhere Brief History of Present Illness: 77-year-old male presented emergency room with malnutrition and ulcer to the right femur area. The patient was evaluated and admitted for further evaluation. Hospital Course: During the course of his stay the wounds to the right thigh and right great toe was evaluated by orthopedics. Orthopedics felt that the right thigh ulcer was a sinus tract related to hardware to the right hip. Orthopedics felt that the patient may have underlying osteomyelitis. Orthopedics counseled the patient at length about the need for the removal of hardware. The patient declined intervention. The patient would rather have this further address in [place] where he is from. Orthopedics was also concerned about the lesion to the right great toe. The patient reported that he has had this lesion since he was very young. He reported being stepped on by a horse. This was discussed in detail with oncology. Oncology felt that this can be further assessed as an outpatient. Intervention was addressed by orthopedics. Again the patient declined intervention. At discharge the patient will go to [facility] to continue wound care and physical therapy. After that time the patient will consider going back to [place] to continue his care. For the multiple wounds infectious disease was consulted. Cultures were positive for Pseudomonas and Staph aureus. Patient was placed on antibiotic therapy. At discharge the patient will continue with Augmentin 500 mg 1 pill twice daily and Levaquin 500 mg daily for a total of 10 days. Patient will continue with current wound care. Patient may follow up at the wound Care Center in 1-2 weeks with infectious disease. Vital Signs/Physical Exam: Temp Pulse Resp BP Pulse Ox 96.8 F 100 H 16 125/87 88 L 10/12/17 16:00 10/12/17 16:00 10/12/17 16:00 10/12/17 16:10/12/17 16:00 General: Alert, In no apparent distress, Oriented x3, Cooperative HEENT: Atraumatic Neck: Supple Respiratory: Clear to auscultation bilaterally, Normal air movement Cardiovascular: Normal pulses, Regular rate/rhythm Gastrointestinal: Normal bowel sounds, Soft and benign, Non-distended, No masses , No rebound, No guarding Musculoskeletal: No erythema, No tenderness, No warmth Integumentary: Other (Ulcer noted to the right great toe. Bony lesion noted to the right great toe. Small ulcer noted to the right femur/thigh area.) Neurological: Normal speech, Normal strength at 5/5 x4 extr, Normal tone, Normal affect Lymphatics: No axilla or inguinal lymphadenopathy Laboratory Data at Discharge: WBC 5.6 K/uL (4.3-10.9) 10/11/17 05:30 Hgb 11.2 g/dL (13.6-17.9) L 10/11/17 05:30 Hct 32.1 % (39.6-49.0) L 10/11/17 05:30 Plt Count 311 K/uL (152-406) 10/11/17 05:30 PT 12.1 SECONDS (9.5-12.5) 10/08/17 04:33 INR 1.03 10/08/17 04:33 APTT 25.6 SECONDS (24.3-36.9) 10/08/17 04:33 Sodium 139 mEq/L (135-145) 10/11/17 05:30 Potassium 3.2 mEq/L (3.6-5.0) L 10/11/17 05:30 BUN 6 mg/dL (6-20) 10/11/17 05:30 Creatinine 0.53 mg/dL (0.61-1.24) L 10/11/17 05:30 Glucose 90 mg/dL (65-120) 10/11/17 05:30 Total Bilirubin 0.7 mg/dL (0.3-1.2) 10/11/17 05:30 AST 19 IU/L (10-42) 10/11/17 05:30 ALT 9 IU/L (10-60) L 10/11/17 05:30 Alkaline Phosphatase 71 IU/L (42-121) 10/11/17 05:30 Lipase 21 U/L (22-51) L 10/07/17 15:15 Home Medications: Acetaminophen [Tylenol] 500 mg PO PRN PRN 10/08/17 Amox/Clavulanate [Augmentin 500-125 mg Tab*] 500 mg PO BID #20 tab 10/12/17 Collagenase [Santyl Ointment*] 1 appl TOP DAILY #1 tube 10/12/17 Ensure Enlive 237 ml PO BID #60 can 10/12/17 Levofloxacin [Levaquin*] 500 mg PO DAILY #10 tab 10/12/17 Mupirocin Oint [Bactroban 2% Ointment*] 1 appl TOP BID #1 tube 10/12/17 Thiamine HCl [Vitamin B-1*] 100 mg PO DAILY #90 tablet 10/12/17 New Medications: Amox/Clavulanate [Augmentin 500-125 mg Tab*] 500 mg PO BID #20 tab Collagenase [Santyl Ointment*] 1 appl TOP DAILY #1 tube Ensure Enlive 237 ml PO BID #60 can Levofloxacin [Levaquin*] 500 mg PO DAILY #10 tab Mupirocin Oint [Bactroban 2% Ointment*] 1 appl TOP BID #1 tube Thiamine HCl [Vitamin B-1*] 100 mg PO DAILY #90 tablet Patient Discharge Instructions: 1. Patient will go to [facility] to continue wound care and physical therapy. 2. Patient has multiple wounds including to the right thigh area and ulcer to the right great toe. Patient will continue with Augmentin 500 mg 1 pill twice daily and Levaquin 500 mg daily for a total of 10 days. Patient will continue with wound care. Patient may follow up at the wound Care Center in 1-2 weeks with infectious disease. Patient will continue with current wound care has provided by infectious disease. 3. Patient will continue with supplementation. 4. Recommendation is for the patient to follow up with orthopedics as an outpatient to further assess the right femur and right great toe. Patient declined intervention at this time. Diet: AHA Activity: Fall precautions Time spent managing pt's care (in minutes): 55
== END 2017-10-12 18:22 | DRG 593 ==
LOC: ER 13:16 → ERHOLD 17:39 → 4TH 18:26
PROVIDERS: ADMIT Internal Medicine Hematology & Oncology; ATTEND Family Medicine
DX: L97.819 Non-pressure chronic ulcer of other part of right lower leg with unspecified severity (principal); E44.0 Moderate protein-calorie malnutrition; N17.9 Acute kidney failure, unspecified; R64 Cachexia; Z68.1 Body mass index [BMI] 19.9 or less, adult; S71.031A Puncture wound without foreign body, right hip, initial encounter; L97.519 Non-pressure chronic ulcer of other part of right foot with unspecified severity; E87.6 Hypokalemia; D53.9 Nutritional anemia, unspecified; R79.89 Other specified abnormal findings of blood chemistry; E86.0 Dehydration; E87.8 Other disorders of electrolyte and fluid balance, not elsewhere classified; R62.7 Adult failure to thrive; D49.2 Neoplasm of unspecified behavior of bone, soft tissue, and skin; D63.8 Anemia in other chronic diseases classified elsewhere; L08.89 Other specified local infections of the skin and subcutaneous tissue; B96.5 Pseudomonas (aeruginosa) (mallei) (pseudomallei) as the cause of diseases classified elsewhere; B95.61 Methicillin susceptible Staphylococcus aureus infection as the cause of diseases classified elsewhere
CPT/HCPCS: 36415; 71045; 71260; 74177; 80048; 80053; 80076; 80202; 81003; 81015; 82550; 82607; 82962; 83605; 83690; 84145; 84443; 84484; 85025; 85610; 85730; 87040; 87070; 87077; 87086; 87088; 87186; 87205; 93005; 97163; 99285; J1650; J2543; J3370; J3590; J7030; Q9967